=== PATIENT | male | born 1980 | race Caucasian/White ===

== ENCOUNTER 2018-02-25 10:03 | Emergency (ER) | payer SELFPAY ==
[~2018-02-25] VITALS: Ht 182.9 cm; Wt 63.6 kg
[~2018-02-25 10:03] MED LIST: BUPRENORPHINE H1 TA1 PO; HYDROCODONE BIT1 T45 PO; METHADONE5 MG PO; NO HOME MEDICATIONS; ZOFRAN 8MG8 MG PO
[2018-02-25 10:43] LABS: HEMATOCRIT 43.9 % (42.0-52.0); HEMOGLOBIN 14.9 g/dL (13.5-18.0); MEAN CELL VOLUME 96 fl (78-100); MEAN CORPUSCULAR HEMOGLOBIN 33 pg (27-31); MEAN CORPUSCULAR HGB CONC 34 g/dL (33-37); MEAN PLATELET VOLUME 10.2 fl (7.4-10.4); PLATELET COUNT 169 K/mm3 (130-400); RED BLOOD COUNT 4.59 M/mm3 (4.20-5.60); RED CELL DISTRIBUTION WIDTH 12.4 % (11.5-14.5)
[2018-02-25 10:50] LABS: ALBUMIN 4.4 g/dL (3.5-5.0); BUN/CREATININE RATIO 17.5 (6.0-26.0); CALCIUM 8.9 mg/dL (8.4-10.2); POTASSIUM 3.7 mmol/L (3.6-5.0); TOTAL BILIRUBIN 0.7 mg/dL (0.2-1.3); TOTAL PROTEIN 7.6 g/dL (6.3-8.2)
[2018-02-25 10:58] LABS: LYMPHOCYTE 12 % (20-51); MONOCYTE 8 % (3-10); NEUTROPHILS 79 % (42-75)
[2018-02-25 11:01] LABS: URINE APPEARANCE CLOUDY; URINE BILIRUBIN NEGATIVE (NEGATIVE); URINE BLOOD 250 ery/uL (NEGATIVE); URINE COLOR YELLOW; URINE GLUCOSE NEGATIVE (NEGATIVE); URINE KETONE NEGATIVE (NEGATIVE); URINE LEUKOCYTE ESTERASE NEGATIVE (NEGATIVE); URINE MUCUS PRESENT (NOT PRESENT); URINE NITRATE NEGATIVE (NEGATIVE); URINE PROTEIN(semi-quant) 2+ mg/dL (NEGATIVE); URINE UROBILINOGEN NORMAL (NORMAL)
[2018-02-25] MEDS ORDERED: FLOMAX0.4 MG PO (12:10)
[2018-02-25] MEDS ORDERED: PERCOCET 325 MG1 TA2 PO (12:10)
[2018-02-25 12:39] VITALS: BP 121/64
== END 2018-02-25 12:26 | disposition home or self-care (01) ==
LOC: ED 10:03
PROVIDERS: Nurse Practitioner Family
DX: N13.2 Hydronephrosis with renal and ureteral calculous obstruction (principal); F17.200 Nicotine dependence, unspecified, uncomplicated
CPT/HCPCS: J1885; J2270; J2405; J7030

== ENCOUNTER 2021-05-02 06:58 | Emergency (ER) | payer SELFPAY ==
[~2021-05-02] VITALS: Ht 182.9 cm; Wt 64.5 kg
[~2021-05-02 06:58] MED LIST changes: +FLOMAX0.4 MG PO; +PERCOCET 325 MG1 TA2 PO
[2021-05-02 07:48] LABS: BASO # 0.02 (0.02-0.10); EOS # 0.05 (0.04-0.40); EOS % 0.6 % (0.0-4.0); HEMATOCRIT 48.3 % (42.0-52.0); HEMOGLOBIN 17.2 g/dL (13.5-18.0); LYMPH# 2.66 (1.50-4.00); MEAN CELL VOLUME 90 fl (78-100); MEAN CORPUSCULAR HEMOGLOBIN 32 pg (27-31); MEAN CORPUSCULAR HGB CONC 36 g/dL (33-37); MEAN PLATELET VOLUME 10.1 fl (7.4-10.4); MONO # 1.03 (0.20-0.80); NEU # 5.08 (1.40-6.50); PLATELET COUNT 175 K/mm3 (130-400); RED BLOOD COUNT 5.34 M/mm3 (4.20-5.60); RED CELL DISTRIBUTION WIDTH 11.4 % (11.5-14.5); WHITE BLOOD COUNT 8.9 K/mm3 (4.8-10.8)
[2021-05-02 08:03] LABS: ALBUMIN 4.5 g/dL (3.5-5.0)
[2021-05-02 08:04] LABS: CALCIUM 10.3 mg/dL (8.3-10.5); POTASSIUM 3.1 mmol/L (3.5-5.1)
[2021-05-02 08:06] LABS: TOTAL PROTEIN 7.7 g/dL (6.4-8.3)
[2021-05-02 08:07] LABS: TOTAL BILIRUBIN 1.7 mg/dL (0.2-1.2)
[2021-05-02] MEDS ORDERED: PRILOSEC 20MG20 MG PO (09:32)
[2021-05-02] MEDS ORDERED: POTASSIUM CHLO20 ME4 PO (09:32)
[2021-05-02] MEDS ORDERED: ZOFRAN ODT4 MG PO (09:32)
[2021-05-02] MEDS ORDERED: PEPCID 20MG TAB20 MG PO (09:32)
[2021-05-02 09:43] VITALS: BP 122/86
== END 2021-05-02 09:43 | disposition home or self-care (01) ==
LOC: ED 06:58
PROVIDERS: Physician Assistant
DX: F10.20 Alcohol dependence, uncomplicated (principal); K29.70 Gastritis, unspecified, without bleeding; E86.0 Dehydration; F17.200 Nicotine dependence, unspecified, uncomplicated; Z20.822 Contact with and (suspected) exposure to COVID-19
CPT/HCPCS: J1885; J2405; J2550; J7030

== ENCOUNTER 2021-10-04 07:00 | Emergency (ER) | payer BC ==
[~2021-10-04] VITALS: Ht 182.9 cm; Wt 64.5 kg
[~2021-10-04 07:00] MED LIST changes: +PEPCID 20MG TAB20 MG PO; +POTASSIUM CHLO20 ME4 PO; +PRILOSEC 20MG20 MG PO; +ZOFRAN ODT4 MG PO
[2021-10-04 07:38] LABS: BASO # 0.03 K/mm3 (0.02-0.10); EOS # 0.01 K/mm3 (0.04-0.40); EOS % 0.1 % (0.0-4.0); HEMOGLOBIN 16.9 g/dL (13.5-18.0); LYMPH# 1.05 K/mm3 (1.50-4.00); MEAN CELL VOLUME 93 fl (78-100); MEAN CORPUSCULAR HEMOGLOBIN 32 pg (27-31); MEAN CORPUSCULAR HGB CONC 35 g/dL (33-37); MONO # 0.74 K/mm3 (0.20-0.80); PLATELET COUNT 144 K/mm3 (130-400); RED BLOOD COUNT 5.27 M/mm3 (4.20-5.60); RED CELL DISTRIBUTION WIDTH 11.7 % (11.5-14.5); WHITE BLOOD COUNT 14.2 K/mm3 (4.8-10.8)
[2021-10-04 07:55] LABS: POTASSIUM 3.7 mmol/L (3.5-5.1)
[2021-10-04 07:56] LABS: CALCIUM 9.9 mg/dL (8.3-10.5)
[2021-10-04 07:58] LABS: TOTAL PROTEIN 8.3 g/dL (6.4-8.3)
[2021-10-04 07:59] LABS: TOTAL BILIRUBIN 1.2 mg/dL (0.2-1.2)
[2021-10-04 08:39] LABS: ALCOHOL IN-HOUSE 57 mg/dL (<10)
[2021-10-04 08:43] LABS: LIPASE 56 U/L (8-78)
[2021-10-04 09:15] LABS: URINE APPEARANCE HAZY; URINE COLOR YELLOW
[2021-10-04 09:16] LABS: URINE BILIRUBIN 1+ (NEGATIVE); URINE BLOOD NEGATIVE (NEGATIVE); URINE GLUCOSE NEGATIVE (NEGATIVE); URINE KETONE 1+ (NEGATIVE); URINE LEUKOCYTE ESTERASE NEGATIVE (NEGATIVE); URINE MUCUS PRESENT (NOT PRESENT); URINE NITRATE NEGATIVE (NEGATIVE); URINE PROTEIN(semi-quant) 2+ (NEGATIVE); URINE UROBILINOGEN 12 mg/dL (NORMAL)
[2021-10-04] MEDS ORDERED: ZOFRAN ODT4 MG PO (11:22)
[2021-10-04] MEDS ORDERED: OMEPRAZOLE40 MG PO (11:22)
[2021-10-04 11:29] VITALS: BP 137/96
== END 2021-10-04 11:47 | disposition home or self-care (01) ==
LOC: ED 07:00
PROVIDERS: Physician Assistant
DX: K21.9 Gastro-esophageal reflux disease without esophagitis (principal); K29.70 Gastritis, unspecified, without bleeding; F10.10 Alcohol abuse, uncomplicated; E86.0 Dehydration; F17.210 Nicotine dependence, cigarettes, uncomplicated
CPT/HCPCS: C9113; J1885; J2405; J2550; J3010; J7030; Q9967

== ENCOUNTER → 2022-11-28 | Outpatient (CLI) | payer SELFPAY ==
[~2022-11-28] MED LIST changes: +OMEPRAZOLE40 MG PO
== END ==
LOC: RAD 09:27
DX: M79.672 Pain in left foot (principal)